=== PATIENT | female | born 1985 | race Two or more races ===

== ENCOUNTER 2024-10-03 16:58 | Inpatient (IN) | payer BC ==
[2024-10-03 18:00] VITALS: BMI 39.4
[2024-10-03] MEDS: MISOPROSTOL 25 MCG TABLET (COMPOUNDED BY PHARMACY) BUC ONE ×2 (19:20→23:20)
[2024-10-03 19:25] LABS: ABSOLUTE IMMATURE GRANULOCYTES 0.02 x10^3/uL (0.0-0.031); BASOPHILS # 0.01 x10^3/uL (0.01-0.08); EOSINOPHILS # 0.07 x10^3/uL (0.04-0.36); HEMOGLOBIN 10.6 g/dL (11.2-15.7); MCHC 32.1 g/dl (32.2-35.5); MEAN CELL VOLUME 81.5 fl (79.4-94.8); MEAN PLT VOLUME 10.3 fl (9.4-12.3); MONOCYTE # 0.54 x10^3/uL (0.24-0.86); MONOCYTE % 7.6 % (4.7-12.5); PLATELET COUNT 266 x10^3/uL (182-369); RDW 14.3 % (12.1-16.8)
[2024-10-03 19:43] LABS: INR 1.03 (0.83-1.09); PROTHROMBIN TIME (PATIENT) 11.3 SEC (9.7-13.0)
[2024-10-03 19:45] LABS: ACTIVATED PTT 25.8 SECONDS (25.2-36.5)
[2024-10-03 19:46] LABS: POTASSIUM 3.8 mmol/L (3.5-5.1)
[2024-10-03 19:48] LABS: ALBUMIN 2.6 g/dl (3.4-5.0); BLOOD UREA NITROGEN 9.4 mg/dL (7-18); CALCIUM 8.9 mg/dL (8.5-10.1)
[2024-10-03 19:51] LABS: CREATININE 0.8 mg/dL (0.55-1.3)
[2024-10-03 19:53] LABS: BILIRUBIN,TOTAL 0.3 mg/dL (0.2-1); TOT PROT 6.5 g/dl (6.4-8.2)
[2024-10-04] MEDS ORDERED: PROMETHAZINE HCL 25 MG/1 ML VIAL ONE ×2 (01:25→07:31)
[2024-10-04] MEDS ORDERED: BUTORPHANOL TARTRATE 1 MG/ML VIAL ONE ×2 (01:25→07:31)
[2024-10-04] MEDS: ELECTROLYTE-148 SOLN 1,000 ML IV SCH (01:30)
[2024-10-04] MEDS: BUTORPHANOL TARTRATE 1 MG/ML VIAL IVPUSH ONE ×2 (01:35→07:35)
[2024-10-04] MEDS: PROMETHAZINE HCL 25 MG/1 ML VIAL IVPB ONE ×2 (01:35→07:35)
[2024-10-04] MEDS ORDERED: OXYTOCIN 30 UNITS in 0.9% NS 30 UNIT/500 ML INFUS.BAG IVPB SCH (05:30)
[2024-10-04] MEDS: OXYTOCIN 30 UNITS in 0.9% NS 30 UNIT/500 ML INFUS.BAG IVPB SCH (06:20)
[2024-10-04] MEDS ORDERED: OXYTOCIN 20 UNITS in 0.9% NS 20 UNIT/1,000 ML INFUS.BAG IV ONE (09:05)
[2024-10-04] MEDS ORDERED: LIDOCAINE HCL 1% PRESERVATIVE FREE - 30ML VIAL ONE (09:11)
[2024-10-04] MEDS: OXYTOCIN 20 UNITS in 0.9% NS 20 UNIT/1,000 ML INFUS.BAG IV SCH (09:28)
[2024-10-04] MEDS ORDERED: oxyCODONE HCL 5 MG TABLET PO PRN (10:19)
[2024-10-04] MEDS ORDERED: BENZOCAINE 28 GM HEMORRHOIDAL OINTMENT TP PRN (10:19)
[2024-10-04] MEDS ORDERED: BISACODYL 10 MG SUPP.RECT RC PRN (10:19)
[2024-10-04] MEDS ORDERED: WITCH HAZEL 50% (TUCKS) 40 PAD/JAR PAD TP PRN (10:19)
[2024-10-04] MEDS ORDERED: BENZOCAINE 20% 57 GM BOTTLE TP PRN (10:19)
[2024-10-04] MEDS ORDERED: METHYLERGONOVINE MALEATE 0.2 MG/1 ML AMP IM PRN (10:19)
[2024-10-04] MEDS ORDERED: IBUPROFEN 600 MG TABLET (FP) PO ONE (11:23)
[2024-10-04] MEDS: IBUPROFEN 600 MG TABLET (FP) PO PRN (11:25)
[2024-10-04] MEDS: ACETAMINOPHEN 325 MG TABLET (FP) PO PRN (13:23)
[2024-10-04 14:29] LABS: COCAINE, UR NEGATIVE (NEGATIVE); METHADONE, UR NEGATIVE (NEGATIVE); OPIATES, URI NEGATIVE (NEGATIVE); PHENCYCLIDINE,URINE NEGATIVE (NEGATIVE); URINE AMPHETAMINES NEGATIVE (NEGATIVE); URINE BARBITURATES NEGATIVE (NEGATIVE); URINE BENZODIAZEPINES NEGATIVE (NEGATIVE)
[2024-10-05 08:14] LABS: HEMATOCRIT 31.8 % (34.1-44.9); HEMOGLOBIN 10.2 g/dL (11.2-15.7); MCHC 32.1 g/dl (32.2-35.5); RDW 14.3 % (12.1-16.8)
[2024-10-05 08:15] LABS: MEAN CELL VOLUME 82.4 fl (79.4-94.8); MEAN PLT VOLUME 10.5 fl (9.4-12.3); PLATELET COUNT 256 x10^3/uL (182-369)
[2024-10-05] MEDS ORDERED: SENNOSIDES/DOCUSATE COMBO (SENNA PLUS) TABLET (UD) PO PRN (22:00)
[2024-10-07 11:21] VITALS: BP 130/82; PULSE 76; RESP 18; TEMP 98.3
== END 2024-10-07 18:37 | disposition home or self-care (01) | DRG 807 ==
LOC: JLDR 16:58 → J3W 10-04 11:45
PROVIDERS: ADMIT Specialist; ATTEND Specialist
PROC: 0HQ9XZZ Repair Perineum Skin, External Approach (ICD-10-PCS; principal; 2024-10-04)
PROC: 10E0XZZ Delivery of Products of Conception, External Approach (ICD-10-PCS; 2024-10-04)
DX: O70.0 First degree perineal laceration during delivery (principal); Z37.0 Single live birth; Z3A.39 39 weeks gestation of pregnancy
CPT/HCPCS: 36415; 59409; 80053; 80307; 85025; 85610; 85730; 86780; 86850; 86900; 86901